=== PATIENT | female | born 1990 | race African-American/Black ===

== ENCOUNTER 2017-03-21 02:52 | Emergency (ER) | payer OTHER ==
[2017-03-21 03:41] LABS: URINE HCG POC HCG NEGATIVE (Negative)
[2017-03-21 03:44] LABS: D-DIMER 0.44 ug/mlFEU (0.00-0.50)
[2017-03-21 03:49] LABS: BILIRUBIN,URINE NEGATIVE (NEG); CLARITY,URINE CLEAR; COLOR,URINE YELLOW; GLUCOSE,URINE NEGATIVE (NEG); NITRITE,URINE NEGATIVE (NEG); PH,URINE 6.5; PROTEIN,URINE NEGATIVE (NEG-TRACE); UROBILINOGEN,URINE 0.2 mg/dL (0.2 mg/dL)
[2017-03-21 03:59] LABS: BACTERIA,URINE MODERATE /HPF (0-FEW); RBC,URINE 0 /HPF (0-2); SQUAMOUS EPITHELIAL CELL,UR MOD /LPF
== END 2017-03-21 04:30 | disposition home or self-care (01) ==
LOC: ER 02:52
DX: R05 Cough (principal); R07.89 Other chest pain; M54.5 Low back pain; J45.909 Unspecified asthma, uncomplicated
CPT/HCPCS: 36415; 71046; 81001; 81025; 84484; 85379; 87086; 93005; 99285-25